=== PATIENT | male | born 1945 | race African-American/Black ===

== ENCOUNTER 2020-03-14 18:24 | Emergency (ER) | payer MEDICARE, OTHER, SELFPAY ==
[2020-03-15 21:26] LABS: SARS-CoV-2 MS2 Positive; SARS-CoV-2 N Gene Positive; SARS-CoV-2 S Gene Positive; SARS-CoV-2 by NAA DETECTED (NotDetected); SARS-CoV-2 orf1ab Positive
== END 2020-03-14 20:04 | disposition home or self-care (01) ==
LOC: MADERS 18:24
DX: U07.1 COVID-19 (principal); E78.5 Hyperlipidemia, unspecified; E78.00 Pure hypercholesterolemia, unspecified; I10 Essential (primary) hypertension
CPT/HCPCS: 87635; 99283; U0003

== ENCOUNTER 2021-07-04 09:58 | Emergency (ER) | payer MEDICARE | END 2021-07-04 11:34 | disposition home or self-care (01) | LOC: MADERS 09:58 | DX: S93.521A Sprain of metatarsophalangeal joint of right great toe, initial encounter (principal); I10 Essential (primary) hypertension; E78.5 Hyperlipidemia, unspecified; E78.00 Pure hypercholesterolemia, unspecified; F17.220 Nicotine dependence, chewing tobacco, uncomplicated; W22.8XXA Striking against or struck by other objects, initial encounter; Z79.899 Other long term (current) drug therapy ==